=== PATIENT | male | born 1940 | race Caucasian/White ===

== ENCOUNTER → 2016-09-06 | Outpatient (CLI) | payer MEDICARE ==
[2016-09-06 13:18] LABS: INR 2.5 (<1.1); Prothrombin Time 23.7 sec (9.0-12.0)
== END | disposition home or self-care (01) ==
LOC: LABWHC1 11:51
PROVIDERS: ATTEND Family Medicine
DX: Z51.81 Encounter for therapeutic drug level monitoring (principal); Z79.01 Long term (current) use of anticoagulants
CPT/HCPCS: 36415; 85610

== ENCOUNTER 2017-01-26 13:48 | Emergency (ER) | payer MEDICARE ==
[2017-01-26 14:05] VITALS: BP 124/62; PULSE 80; RESP 18; TEMP 97.8
--- NOTE | 2017-01-26 14:23 | ED ---
General Adult HPI - General Chief complaint: Skin/Abscess/Foreign Body Stated complaint: Skin Tear Time Seen by Provider: 01/26/17 14:06 Source: patient, RN notes reviewed Mode of arrival: ambulatory Limitations: no limitations - History of Present Illness Initial comments: 76-year-old male presents to the emergency department with a chief complaint of skin tear to the left arm. Patient states that he hit on a corner today. Patient states that she has tetanus. Patient states he has had other injury to the area. Patient states he bandaged it himself. Patient states that he just wanted a bandage so he thought that he should be seen. Patient does take Xarelto. Patient denies any recent fever, chills, shortness of breath, chest pain, back pain, abdominal pain, nausea vomiting, numbness or tingling, dysuria or hematuria, constipation or diarrhea, headaches or visual changes, or any other current symptoms. - Related Data Home Medications Medication Instructions Recorded Confirmed Albuterol Inhaler [Ventolin Hfa 1 - 2 puff INHALATION Q6HR PRN 08/08/15 11/06/15 Inhaler] Beclomethasone Dipropionate [Qvar 2 puff INHALATION BID 08/08/15 11/06/15 80 mcg/puff] ALPRAZolam [Xanax] 0.25 mg PO Q8HR PRN 11/04/15 11/06/15 Montelukast Sodium [Singulair] 10 mg PO HS 11/04/15 11/06/15 Multivitamins, Thera [Multivitamin 1 tab PO DAILY 11/04/15 11/06/15 (formulary)] Omalizumab [Xolair] 2 injection SQ [id number] 11/04/15 11/06/15 Previous Rx's Medication Instructions Recorded Diltiazem Oral [Cardizem*] 30 mg PO BID #90 tab 11/06/15 Rivaroxaban [Xarelto] 20 mg PO W/SUPPER #90 tab 11/06/15 Allergies Allergy/AdvReac Type Severity Reaction Status Date / Time latex Allergy Itching Verified 01/26/17 14:04 magnesium Allergy HYPOTENSION Verified 01/26/17 14:04 Penicillins Allergy Anaphylaxis Verified 01/26/17 14:04 Review of Systems ROS Statement: Those systems with pertinent positive or pertinent negative responses have been documented in the HPI. ROS Other: All systems not noted in ROS Statement are negative. Past Medical History Past Medical History: Asthma, Eye Disorder, Hearing Disorder / Deafness, Hyperlipidemia, Osteoarthritis (OA), Skin Disorder, Supraventricular Tachycardia (SVT), Syncope Additional Past Medical History / Comment(s): PSORIASIS. MILD VARICOSE VEINS LEGS. SL GLAUCOMA. EPISODE SYNCOPE 09/26/15. RECENT CRAMPS IN FEET AND CALVES. PATIENT STATES "PREDNISONE MAY BE CAUSE OF SVT." History of Any Multi-Drug Resistant Organisms: None Reported Past Surgical History: Ablation, Appendectomy, Cholecystectomy, Joint Replacement, Orthopedic Surgery, Tonsillectomy Additional Past Surgical History / Comment(s): TOTAL LT KNEE; RT KNEE SCOPE. Additional Past Anesthesia/Blood Transfusion Reaction / Comment(s): DELAYED DIGESTION AFTER CHOLECYSTECTOMY. Past Psychological History: Anxiety, Depression Smoking Status: Former smoker Past Alcohol Use History: Rare Past Drug Use History: None Reported - Past Family History Father Family Medical History: Cancer General Exam Limitations: no limitations General appearance: alert ENT exam: Present: normal exam, mucous membranes moist Neck exam: Present: normal inspection. Absent: tenderness, meningismus, lymphadenopathy Respiratory exam: Present: normal lung sounds bilaterally. Absent: respiratory distress, wheezes, rales, rhonchi, stridor Cardiovascular Exam: Present: regular rate, normal rhythm, normal heart sounds. Absent: systolic murmur, diastolic murmur, rubs, gallop, clicks Extremities exam: Present: full ROM, normal capillary refill. Absent: normal inspection (Patient does appear to have a skin tear to left upper arm), tenderness, pedal edema, joint swelling, calf tenderness Neurological exam: Present: alert, oriented X3 Psychiatric exam: Present: normal affect, normal mood Skin exam: Present: warm, dry, intact, normal color. Absent: rash Course Vital Signs 01/26/17 14:00 Temperature 97.8 F Pulse Rate 80 Respiratory 18 Rate Blood Pressure 124/62 O2 Sat by Pulse 97 Oximetry Medical Decision Making - Medical Decision Making 76-year-old male presents for skin tear for left upper quadrant. Patient area was cleaned and Tegaderm was placed over the top. We discussed care of this we discussed return. Discussed follow-up and all the patient's questions. He stated he understood and he is in agreement. Patient will be Discharge. Disposition Clinical Impression: Skin tear of upper arm without complication Disposition: HOME SELF-CARE Condition: Stable Instructions: Skin Tear (ED) Additional Instructions: Please use medication as discussed. Please follow up with family doctor if symptoms have not improved over the next two days. Please return to the emergency room if your symptoms increase or worsen or for any other concerns. Referrals: Madhavi Agee MD [Primary Care Provider] - 1-2 days Time of Disposition: 14:26
== END 2017-01-26 14:31 | disposition home or self-care (01) ==
LOC: EC 13:48
DX: S41.112A Laceration without foreign body of left upper arm, initial encounter (principal); J45.909 Unspecified asthma, uncomplicated; Z87.891 Personal history of nicotine dependence; Z79.51 Long term (current) use of inhaled steroids; Z79.899 Other long term (current) drug therapy; Z88.0 Allergy status to penicillin; Z88.8 Allergy status to other drugs, medicaments and biological substances; Z91.040 Latex allergy status; W20.8XXA Other cause of strike by thrown, projected or falling object, initial encounter
CPT/HCPCS: 99282

== ENCOUNTER → 2017-02-15 | Outpatient (CLI) | payer MEDICARE ==
[2017-02-15 12:35] LABS: Blood Urea Nitrogen 23 mg/dL (9-20); Non-African American GFR(MDRD) 59 (>60 ml/min/1.73 sqM)
--- NOTE | 2017-02-15 14:08 | MR ---
EXAMINATION TYPE: MR pituitary wo/w con DATE OF EXAM: 02/15/2017 COMPARISON: MRI pituitary gland June 16, 2016 HISTORY: benign neoplasm of pituitary gland TECHNIQUE: Multiplanar, multisequence images of the brain and brainstem is performed without and with IV contras t, utilizing 20 mL intravenous MultiHance . Pituitary gland protocol. FINDINGS: There is redemonstration of heterogeneous enhancing sellar mass with suprasellar extension seen best on postcontrast sagittal image 8 and coronal image 10 measuring up to 1.4 cm in craniocauda l dimension. This extends to the superior medial margin of both adjacent distal internal carotid eli belia on coronal images. Size of lesion is stable. There is perhaps slight impression along the inferi or margin of optic chiasm seen best on coronal image 9 with loss of intervening CSF this is perhaps s lightly more prominent than prior study. Clinical correlation advised. Pituitary stalk remains deviat ed right of midline seen best coronal image 12. No suspicious bony destruction is seen. No new hydrocephalus is present. Craniocervical junction is maintained. 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 Appearance is grossly stable with the exception of encroachment along inferior m argin of the optic chiasm seen best on T2 coronal weighted images as detailed above. Clinical correla tion advised.
== END | disposition home or self-care (01) ==
LOC: RADMRIMAIN 12:03
PROVIDERS: ATTEND Neurological Surgery
DX: D35.2 Benign neoplasm of pituitary gland (principal)
CPT/HCPCS: 82565; 84520; 70553; A9577

== ENCOUNTER → 2018-02-09 | Outpatient (CLI) | payer MEDICARE ==
--- NOTE | 2018-02-09 09:33 | US ---
EXAMINATION TYPE: US duplex aorta DATE OF EXAM: 02/09/2018 COMPARISON: NONE CLINICAL HISTORY: Z13.6 screening for cardiovascular disorders. Patient states this is for a wellness check, states no symptoms at this time. TECHNIQUE: Multiple sonographic images of the abdominal aorta are obtained. FINDINGS: EXAM MEASUREMENTS: Abdominal Aorta: Proximal: 2.1 x 2.2cm Mid: 1.7 x 2.0cm Distal: 1.6 x 1.7cm Right Iliac: 0.9 x 1.1cm Left Iliac: 0.9 x 1.1cm Visualized portions of abdominal aorta and proximal iliacs appear wnl, no AAA seen at this time. IMPRESSION: No sonographic evidence for AAA.
== END | disposition home or self-care (01) ==
LOC: RADUSWWP 08:04
PROVIDERS: ATTEND Family Medicine
DX: Z13.6 Encounter for screening for cardiovascular disorders (principal)
CPT/HCPCS: 93979

== ENCOUNTER → 2019-02-15 | Outpatient (CLI) | payer MEDICARE ==
--- NOTE | 2019-02-15 17:16 | CT ---
EXAMINATION TYPE: CT chest wo con DATE OF EXAM: 02/15/2019 COMPARISON: None HISTORY: Cough, difficulty breathing CT DLP: 726.8 mGycm, Automated exposure control for dose reduction was used. CONTRAST: None TECHNIQUE: Axial images were obtained at 5 mm thick sections. Reconstructed images are reviewed on [email or web address] computer in the coronal plane. FINDINGS: Portion of the thyroid visualized is normal. There is a tiny calcification measuring 0.3 cm in the posterior left lung apex along the pleural marino in. 0.5 cm nodule is at the left apex. Series 4 image 10. Calcification is at the azygoesophageal re cess measures 0.6 cm. An additional 0.3 cm calcification appears to be in the posterior right lung. C ouple of additional punctate calcifications are within the left lower lung field measuring 0.4 cm eac h. There is a suspicious mass right infrahilar region measuring 4.3 x 3.9 cm. Neoplasm should be conside red. 1.3 cm density may be within the lingula. There is fullness in the left infrahilar region as wel l some small nodularities may be within the posterior lateral right lung base. There is a nodule within the posterior right lung measuring 0.8 cm. Series 4 image 15. An eccentric c alcification is present. A 0.5 cm densities in the posterior medial left upper lobe. Series 4 image 1 5. There is a 0.4 cm nodule superior segment left lower lobe. Series 4 image 25. These nodules appe ar to be soft tissue density without central calcification and cannot be classified as probably benig n. Multiple calcifications are within lymph nodes within the mediastinum. Some of these lymph nodes aren 't enlarged. Diffuse infiltrates in the right middle lobe and along the major fissure on the left. The ascending aorta diameter at the level of the main pulmonary artery is 3.7 cm. The main pulmonary artery diameter at the bifurcation is 2.[address] sections are obtained through the upper abdomen. Abdomen is essentially unremarkable. IMPRESSIONS: 1. Within multiple areas which are likely benign findings is a subtle right infrahilar soft tissue de nsity with spiculated margin which is suspicious for neoplasm. Consider PET CT for additional evaluat ion. 2. There are multiple nodular densities many of which have central calcification as well as calcified enlarged lymphadenopathy within the mediastinum. These areas are more likely benign and related to p rior granulomatous disease. 3. However, there are additional soft tissue nodules within the lung herrera discussed above. 4. PET CT is recommended for additional evaluation.
== END | disposition home or self-care (01) ==
LOC: RADCTMAIN 07:43
PROVIDERS: ATTEND Family Medicine
DX: J98.4 Other disorders of lung (principal); R59.0 Localized enlarged lymph nodes
CPT/HCPCS: 71250

== ENCOUNTER → 2019-03-09 | Outpatient (CLI) | payer MEDICARE ==
--- NOTE | 2019-03-10 15:48 | PE ---
EXAMINATION TYPE: PET CT fusion skull to thigh DATE OF EXAM: 03/09/2019 COMPARISON: Chest CT February 15, 2019 HISTORY: Right lung mass, abnormal CT TECHNIQUE: Following the intravenous administration of 9.17 mCi of F-18 FDG, whole body images are p erformed from the skull base to the midthigh. Images are reviewed on the computer in the coronal, ax ial, and sagittal planes. Reconstructed rotating images are created on independent workstation and r eviewed on the computer. A noncontrast CT is performed in conjunction with the PET scan. SCAN: Initial Scan FINDINGS: SKULL BASE AND NECK: No areas of suspicious hypermetabolic uptake. CHEST, MEDIASTINUM, AND HILAR REGION: There is redemonstration of multiple partially calcified thorac ic lymph nodes including involvement in bilateral hilar regions without definitive areas of suspiciou s hypermetabolic uptake. Findings presumed product of old granulomatous disease. Areas of parenchymal scarring in bilateral lower lobes, left greater than right are present without suspicious hypermetab olic uptake. ABDOMEN AND PELVIS: No areas of suspicious hypermetabolic uptake. No adrenal masses are noted. OSSEOUS STRUCTURES: No areas of suspicious hypermetabolic uptake. OTHER CT: Ymhu-cj-uhmsfjpt calcified plaque bilateral carotid bulb level is present. Moderate to severe three-vessel coronary artery calcification is seen which is noted marked underlyin g coronary artery disease. Cystectomy clips are present. Ilpr-jf-kdwlpeld fatty-replaced atrophy of the pancreas. Diverticula in the left and sigmoid colon are seen. Facet arthropathy in the lower lumbar spine. Multilevel spurring in the spine. IMPRESSION: No areas of suspicious hypermetabolic uptake including at area of recent concern right in frahilar level with more spiculated noncalcified appearance on recent CT. Evidence of significant old granulomatous disease redemonstrated.
== END | disposition home or self-care (01) ==
LOC: RADPETMAIN 16:11
PROVIDERS: ATTEND Internal Medicine Pulmonary Disease
DX: R91.8 Other nonspecific abnormal finding of lung field (principal)
CPT/HCPCS: 78815; A9552

== ENCOUNTER → 2019-05-15 | Outpatient (CLI) | payer MEDICARE | END | disposition home or self-care (01) | LOC: LABWHC1 15:16 | PROVIDERS: ATTEND Family Medicine | DX: D72.1 Eosinophilia (principal) | CPT/HCPCS: 87045; 87046; 87328; 87329 ==

== ENCOUNTER → 2019-10-11 | Outpatient (CLI) | payer MEDICARE ==
[2019-10-11 16:15] LABS: HCT 42.3 % (39.0-53.0); HGB 13.9 gm/dL (13.0-17.5); MCHC 32.8 g/dL (31.0-37.0); MCV 91.7 fL (80.0-100.0); Mean Platelet Volume 7.5; Platelet Count 178 k/uL (150-450); RBC 4.61 m/uL (4.30-5.90); RDW 13.6 % (11.5-15.5)
--- NOTE | 2019-10-11 16:32 | XR ---
EXAMINATION TYPE: XR foot complete RT DATE OF EXAM: 10/11/2019 CLINICAL HISTORY: Swelling and redness centered first toe 2 days. TECHNIQUE: Frontal, lateral, and oblique images of the right foot are obtained. COMPARISON: None FINDINGS: There is no acute fracture/dislocation evident in the right foot. Hallux valgus positionin g first metatarsal-phalangeal joint. Fairly moderate narrowing most prominent medially at this level with subchondral cystic change and mild spurring. There are moderate to large size superior and infer ior calcaneal spurs. No suspicious cortical destruction or periosteal reaction is seen to suggest acu te osteomyelitis. Mild plantar surface subcutaneous edema noted. IMPRESSION: As above .
[2019-10-11 16:33] LABS: African American GFR (CKD) 63 (>60 ml/min/1.73 sqM); Anion Gap 7 mmol/L; Blood Urea Nitrogen 27 mg/dL (9-20); Calcium 9.5 mg/dL (8.4-10.2); Carbon Dioxide 30 mmol/L (22-30); Chloride 100 mmol/L (98-107); Globulin 2.6 g/dL; Glucose 85 mg/dL (74-99); Magnesium 2.1 mg/dL (1.6-2.3); Non-African American GFR(CKD) 55 (>60 ml/min/1.73 sqM); Potassium 4.2 mmol/L (3.5-5.1); Sodium 137 mmol/L (137-145); Total Protein 6.6 g/dL (6.3-8.2)
[2019-10-11 16:34] LABS: ALT 15 U/L (4-49); AST 25 U/L (17-59); Albumin/Globulin Ratio 1.5; Alkaline Phosphatase 78 U/L (38-126); Total Bilirubin 0.6 mg/dL (0.2-1.3)
== END | disposition home or self-care (01) ==
LOC: LABWHC1 15:41
PROVIDERS: ATTEND Family Medicine
DX: M20.11 Hallux valgus (acquired), right foot (principal); M79.89 Other specified soft tissue disorders; L03.115 Cellulitis of right lower limb
CPT/HCPCS: 36415; 80053; 83735; 84550; 85027; 87040

== ENCOUNTER → 2020-09-18 | Outpatient (CLI) | payer MEDICARE ==
--- NOTE | 2020-09-18 21:01 | US ---
EXAMINATION TYPE: US extremity nonvasculr ltd LT DATE OF EXAM: 09/18/2020 COMPARISON: NONE CLINICAL HISTORY: R22.42 SWELLING LT LOWER LIMB. Patient states lump left medial lower thigh since last March after vein harvesting for open heart farr rgery. Scanning was performed directly over palpable, left lower inner thigh. There is a 3.9 x 2.3 x 4.0 cm complex fluid collection at palpable. Color flow was not performed. IMPRESSION: 1. Findings likely related to old hematoma or seroma at the palpable area.
== END | disposition home or self-care (01) ==
LOC: RADUSWWP 15:34
PROVIDERS: ATTEND Family Medicine
DX: R22.42 Localized swelling, mass and lump, left lower limb (principal)

== ENCOUNTER → 2021-01-16 | Outpatient (CLI) | payer MEDICARE ==
[~2021-01-16] MED LIST: REGADENOSON 0.4 MG/5 ML SYRINGE IV PRN
--- NOTE | 2021-01-16 16:54 | NM ---
EXAMINATION TYPE: NM stress lexiscan cardiolite DATE OF EXAM: 01/16/2021 COMPARISON: NONE HISTORY: 80-year-old male fatigue, chest discomfort, shoulder pain. TECHNIQUE: After the intravenous administration of 9.7 mCi Tc 99m Sestamibi - Cardiolite resting SPE CT images acquired 45 minutes post injection. The patient received 0.4mg Lexiscan, 25.8 mCi Tc 99m Sestamibi - Stress images obtained [address] injection FINDINGS: Review of stress and rest SPECT images demonstrates fixed perfusion defect along the mid to apical in ferior wall which enlarges on stress. On stress, decreased activity extends up to the inferolateral b will wall. Gated analysis shows normal wall motion with an estimated left ventricular ejection fracti on of 47 %. TID is 1.04, within normal limits. IMPRESSION: Unable to exclude old infarct along the mid to apical inferior wall with liza-infarct ischemia and so me contiguous inducible ischemia extending up into the basal inferolateral wall. Further evaluation r ecommended.
--- NOTE | 2021-01-16 18:04 | ECHOF ---
Referral Reason:R06.00 Dyspnea MEASUREMENTS -------- HEIGHT: 170.2 cm WEIGHT: 104.3 kg BP: RVIDd: 4.6 cm (< 3.3) IVSd: 2.1 cm (0.6 - 1.1) LVIDd: 4.6 cm (3.9 - 5.3) LVPWd: 1.3 cm (0.6 - 1.1) IVSs: 2.3 cm LVIDs: 2.9 cm LVPWs: 1.8 cm LAESV Index (A-L): 33.42 ml/m Ao Diam: 3.2 cm (2.0 - 3.7) AV Cusp: 1.9 cm (1.5 - 2.6) LA Diam: 5.0 cm (2.7 - 3.8) MV E Justino: 0.79 m/s MV DecT: 167 ms MV A Justino: 0.64 m/s MV E/A Ratio: 1.23 RAP: 5.00 mmHg RVSP: 27.54 mmHg FINDINGS -------- Sinus rhythm. This was a technically difficult study with suboptimal views. The left ventricular size is normal. There is moderate concentric left ventricular hypertrophy. O verall left ventricular systolic function is low-normal with, an EF between 50 - 55 %. Septal wall motion is delayed and consistent with prior cardiac surgery. The right ventricle is moderately enlarged. LA is midly dilated 29-33ml/m2. The right atrial size is normal. 5.0mg of Lumason was utilized for enhancement of images Interatrial and interventricular septum intact. There is no evidence of aortic regurgitation. There is no evidence of aortic stenosis. Mild mitral regurgitation is present. Mild tricuspid regurgitation present. There is no evidence of pulmonary hypertension. The right v entricular systolic pressure, as measured by Doppler, is 27.54mmHg. There is no pulmonic regurgitation present. The aortic root size is normal. IVC Not well visulized. There is no pericardial effusion. CONCLUSIONS -------- 1. The left ventricular size is normal. 2. There is moderate concentric left ventricular hypertrophy. 3. Overall left ventricular systolic function is low-normal with, an EF between 50 - 55 %. 4. Septal wall motion is delayed and consistent with prior cardiac surgery. 5. The right ventricle is moderately enlarged. 6. LA is midly dilated 29-33ml/m2. 7. Mild mitral regurgitation is present. 8. Mild tricuspid regurgitation present. DATA MODELING ARCHITECT: Cherri Santana RDCS
--- NOTE | 2021-01-17 15:02 | EST ---
EXERCISE STRESS DATE OF SERVICE: 01/16/2021. AGE: 80 SEX: M HT: @@ WT: @@ PROTOCOL: @@ STAGE: @@ DURATION OF EXERCISE: @@ HEART RATE REST: @@ BLOOD PRESSURE REST: @@ MAXIMUM HEART RATE ACHIEVED: @@ MAXIMUM BLOOD PRESSURE: @@ 85% MPHR: @@ 100% MPHR: @@ METS: @@ STRESS DATA: Heart rate 59, pressure is 111/58 mmHg. Baseline EKG showed sinus mechanism. The patient was given 0.4 mg of Lexiscan over 15 seconds per protocol. Max heart rate was 70 beats per minute and maximum pressure was 108/42 mmHg. Clinically, the patient did not have any symptoms and the EKG did not show any significant ST or T-wave abnormalities concerning for ischemia. CONCLUSION: 1. Nondiagnostic electrocardiogram stress testing in response to Lexiscan. 2. Please follow up on the Cardiolite portion on a separate report. MMODL / IJN: [id number] /
== END | disposition home or self-care (01) ==
LOC: RADNMMAIN 07:52
PROVIDERS: ATTEND Internal Medicine Cardiovascular Disease
DX: I25.9 Chronic ischemic heart disease, unspecified (principal); I08.1 Rheumatic disorders of both mitral and tricuspid valves
CPT/HCPCS: 93017; 78452; C8929; A9500; J2785; Q9950; 93306

== ENCOUNTER → 2021-01-23 | Outpatient (CLI) | payer MEDICARE ==
[2021-01-23 18:30] LABS: Basophils # (A) 0.01 X 10*3/uL (0.00-0.10); Basophils % (A) 0.2 %; Eosinophils # (A) 0 X 10*3/uL (0.04-0.35); Eosinophils % (A) 0 %; HCT 43.6 % (39.6-50.0); HGB 14.2 g/dL (13.0-17.0); Lymphocytes # (A) 0.84 X 10*3/uL (0.90-5.00); Lymphocytes % (A) 15.7 %; MCH 30.5 pg (27.0-32.0); MCHC 32.6 g/dL (32.0-37.0); MCV 93.6 fL (80.0-97.0); Mean Platelet Volume 10.2 fL (9.5-12.2); Monocytes # (A) 0.65 X 10*3/uL (0.20-1.00); Monocytes % (A) 12.1 %; Neutrophils # (A) 3.83 X 10*3/uL (1.80-7.70); Neutrophils % (A) 71.6 %; Platelet Count 186 X 10*3/uL (140-440); RBC 4.66 X 10*6/uL (4.40-5.60); RDW 12.9 % (11.5-14.5); WBC 5.35 X 10*3/uL (4.50-10.00)
[2021-01-23 20:31] LABS: Hemoglobin A1C 5.6 % (4.0-6.0)
[2021-01-23 22:27] LABS: African American GFR (CKD) 66.7 (60.0-200.0); Albumin 4.3 g/dL (3.80-4.90); Albumin/Globulin Ratio 2.05 (1.60-3.17); BUN/Creat Ratio 19.17 Ratio (12.00-20.00); Calcium 9.3 mg/dL (8.7-10.3); Chol/HDL Ratio 4.93; Globulin 2.1 g/dL (1.6-3.3); LDL Cholesterol,Calculated 146.8 mg/dL (0.0-131.0); Non-African American GFR(CKD) 57.6 (60.0-200.0); Potassium 4.7 mmol/L (3.5-5.5); Total Bilirubin 0.7 mg/dL (0.3-1.2); Total Protein 6.4 g/dL (6.2-8.2); VLDL Calculation 26.2 mg/dL (5.00-40.00)
== END | disposition home or self-care (01) ==
LOC: LABWHC1 12:03
PROVIDERS: ATTEND Internal Medicine Cardiovascular Disease
DX: Z13.1 Encounter for screening for diabetes mellitus (principal); E78.5 Hyperlipidemia, unspecified; I25.10 Atherosclerotic heart disease of native coronary artery without angina pectoris
CPT/HCPCS: 36415; 80053; 80061; 83036; 85025

== ENCOUNTER → 2021-03-26 | Outpatient (CLI) | payer MEDICARE ==
[2021-03-26 19:00] LABS: HCT 41.4 % (39.6-50.0); MCH 31.4 pg (27.0-32.0); MCHC 33.8 g/dL (32.0-37.0); MCV 92.8 fL (80.0-97.0); Mean Platelet Volume 10.5 fL (9.5-12.2); Platelet Count 180 X 10*3/uL (140-440); RBC 4.46 X 10*6/uL (4.40-5.60); RDW 12.7 % (11.5-14.5); WBC 6.22 X 10*3/uL (4.50-10.00)
[2021-03-26 22:13] LABS: African American GFR (CKD) 60.6 (60.0-200.0); Albumin 4.4 g/dL (3.80-4.90); Albumin/Globulin Ratio 2.2 (1.60-3.17); Anion Gap 9.3 mmol/L (4.00-12.00); BUN/Creat Ratio 16.15 Ratio (12.00-20.00); Calcium 9.7 mg/dL (8.7-10.3); Carbon Dioxide 25.7 mmol/L (21.6-31.8); Non-African American GFR(CKD) 52.3 (60.0-200.0); Potassium 4.6 mmol/L (3.5-5.5); Total Bilirubin 0.5 mg/dL (0.3-1.2); Total Protein 6.4 g/dL (6.2-8.2)
== END | disposition home or self-care (01) ==
LOC: LABWHC1 01-22 12:21
PROVIDERS: ATTEND Internal Medicine Cardiovascular Disease
DX: I20.0 Unstable angina (principal)
CPT/HCPCS: 36415; 80053; 85027

== ENCOUNTER → 2021-04-20 | Outpatient (CLI) | payer MEDICARE ==
[2021-04-20 22:56] LABS: HCT 40.1 % (39.6-50.0); HGB 13.2 g/dL (13.0-17.0); MCH 30.8 pg (27.0-32.0); MCHC 32.9 g/dL (32.0-37.0); MCV 93.7 fL (80.0-97.0); Mean Platelet Volume 10.3 fL (9.5-12.2); Platelet Count 163 X 10*3/uL (140-440); RBC 4.28 X 10*6/uL (4.40-5.60); WBC 5.13 X 10*3/uL (4.50-10.00)
[2021-04-20 23:27] LABS: INR 0.94 (0.90-1.11); Prothrombin Time 10.3 sec (9.9-11.9)
[2021-04-21 19:34] LABS: African American GFR (CKD) 66.7 (60.0-200.0); Albumin 4.5 g/dL (3.80-4.90); Albumin/Globulin Ratio 2.25 (1.60-3.17); Anion Gap 13.2 mmol/L (4.00-12.00); BUN/Creat Ratio 19.17 Ratio (12.00-20.00); Calcium 9.1 mg/dL (8.7-10.3); Carbon Dioxide 22.8 mmol/L (21.6-31.8); Non-African American GFR(CKD) 57.6 (60.0-200.0); Potassium 4.9 mmol/L (3.5-5.5); Total Bilirubin 0.5 mg/dL (0.3-1.2); Total Protein 6.5 g/dL (6.2-8.2)
== END | disposition home or self-care (01) ==
LOC: LABWHC1 16:09
PROVIDERS: ATTEND Internal Medicine Cardiovascular Disease
DX: I25.10 Atherosclerotic heart disease of native coronary artery without angina pectoris (principal); Z79.01 Long term (current) use of anticoagulants
CPT/HCPCS: 36415; 80053; 85027; 85610

== ENCOUNTER → 2021-06-23 | Outpatient (CLI) | payer MEDICARE ==
--- NOTE | 2021-06-23 15:17 | US ---
EXAMINATION TYPE: US kidneys/renal and bladder DATE OF EXAM: 06/23/2021 COMPARISON: PET/CT March 09, 2019 CLINICAL HISTORY: N28.9 CKD. CKD EXAM MEASUREMENTS: Right Kidney: 9.7 x 4.3 x 4.3 cm Left Kidney: 10.3 x 4.4 x 4.1 cm technical limitations due to large amount of overlying bowel content Right Kidney: no evidence of hydronephrosis Left Kidney: no evidence of hydronephrosis Bladder: appears wnl Bilateral Jets seen: no There is no evidence for hydronephrosis at this point in time. No nephrolithiasis is seen. No isabel s are identified. The urinary bladder is 93 the distended. Bilateral ureteral jets are not seen. IMPRESSION: No hydronephrosis seen bilaterally.
== END | disposition home or self-care (01) ==
LOC: RADUSWWP 14:01
PROVIDERS: ATTEND Family Medicine
DX: N18.9 Chronic kidney disease, unspecified (principal)
CPT/HCPCS: 76770

== ENCOUNTER → 2021-10-20 | Outpatient (CLI) | payer MEDICARE ==
[2021-10-20 22:59] LABS: Appearance,Urine Clear (Clear); Bilirubin,Urine Negative (Negative); Blood,Urine Negative (Negative); Color,Urine Yellow (Yellow); Ketones,Urine Negative (Negative); Leukocyte Esterase,Urine Negative (Negative); Nitrite,Urine Negative (Negative); PH, Urine 5.5 (5.0-8.0); Protein,Urine Negative (Negative); Specific Gravity,Urine 1.015 (1.001-1.030); Urobilinogen,Urine 0.2 (0.2,1.0)
[2021-10-20 23:26] LABS: African American GFR (CKD) 66.3 (60.0-200.0); Albumin 4.3 g/dL (3.8-4.9); Albumin/Globulin Ratio 2.05 (1.60-3.17); Anion Gap 11.6 mmol/L (10.00-18.00); BUN/Creat Ratio 19.83 Ratio (12.00-20.00); Blood Urea Nitrogen 23.8 mg/dL (9.0-27.0); Calcium 9.9 mg/dL (8.7-10.3); Carbon Dioxide 24.4 mmol/L (20.0-27.5); Globulin 2.1 g/dL (1.6-3.3); Magnesium 2.1 mg/dL (1.5-2.4); Non-African American GFR(CKD) 57.2 (60.0-200.0); Phosphorus 3.6 mg/dL (2.4-5.1); Potassium 4.8 mmol/L (3.5-5.5); Total Bilirubin 0.2 mg/dL (0.30-1.20); Total Protein 6.4 g/dL (6.2-8.2); Uric Acid 6.6 mg/dL (3.7-8.7)
[2021-10-20 23:34] LABS: HCT 39.9 % (39.6-50.0); HGB 13.3 g/dL (13.0-17.0); MCH 30.9 pg (27.0-32.0); MCHC 33.3 g/dL (32.0-37.0); MCV 92.6 fL (80.0-97.0); Mean Platelet Volume 10.3 fL (9.5-12.2); NRBC Per 100 WBC 0 /100 WBCS (0.0-0.0); Platelet Count 160 X 10*3/uL (140-440); RBC 4.31 X 10*6/uL (4.40-5.60); WBC 6.93 X 10*3/uL (4.50-10.00)
[2021-10-20 23:59] LABS: Ferritin 63.1 ng/mL (22.0-322.0)
[2021-10-21 00:24] LABS: % Iron Saturation 25.85 (15.00-50.00)
== END | disposition home or self-care (01) ==
LOC: LABWHC1 16:11
PROVIDERS: ATTEND Internal Medicine
DX: N18.31 Chronic kidney disease, stage 3a (principal); D64.9 Anemia, unspecified; N39.0 Urinary tract infection, site not specified; N25.81 Secondary hyperparathyroidism of renal origin; E55.9 Vitamin D deficiency, unspecified; M10.9 Gout, unspecified
CPT/HCPCS: 36415; 80053; 81003; 82306; 82728; 83540; 83550; 83735; 83970; 84100; 84550; 85027

== ENCOUNTER → 2022-01-18 | Outpatient (CLI) | payer MEDICARE ==
[2022-01-18 18:06] LABS: ALT 20 U/L (10-49); AST 26 U/L (14-35); African American GFR (CKD) 66.3 (60.0-200.0); Albumin 4.4 g/dL (3.8-4.9); Alkaline Phosphatase 81 U/L (41-126); BUN/Creat Ratio 14.58 Ratio (12.00-20.00); Blood Urea Nitrogen 17.5 mg/dL (9.0-27.0); Calcium 9.6 mg/dL (8.7-10.3); Carbon Dioxide 25.8 mmol/L (20.0-27.5); Chloride 102 mmol/L (96-109); Chol/HDL Ratio 2.93 Ratio; Glucose 102 mg/dL (70-110); LDL Cholesterol,Calculated 69.2 mg/dL (0.0-131.0); Non-African American GFR(CKD) 57.2 (60.0-200.0); Potassium 4.7 mmol/L (3.5-5.5); Sodium 137 mmol/L (135-145); Total Protein 6.4 g/dL (6.2-8.2); VLDL Calculation 17.84 mg/dL (5.00-40.00)
== END | disposition home or self-care (01) ==
LOC: LABWHC1 11:59
PROVIDERS: ATTEND Internal Medicine Interventional Cardiology
DX: E78.2 Mixed hyperlipidemia (principal)
CPT/HCPCS: 36415; 80053; 80061

== ENCOUNTER 2022-02-05 10:20 | Day surgery (SDC) | payer MEDICARE ==
[~2022-02-05 10:20] MED LIST changes: +LACTATED RINGERS 1,000 ML IV SCH; -REGADENOSON 0.4 MG/5 ML SYRINGE IV PRN
[2022-02-05 11:20] VITALS: RESP 16; TEMP 98.5
[2022-02-05] MEDS ORDERED: LIDOCAINE 1% (10MG/ML) FOR IV START INTRADERMA ONE (11:26)
[2022-02-05] MEDS ORDERED: LIDOCAINE 2% INJ 20 MG/ML (2 ML VIAL) ONE (12:21)
[2022-02-05] MEDS ORDERED: PROPOFOL 10 MG/ML 20 ML VIAL IV ONE (12:21)
--- NOTE | 2022-02-05 12:38 | P.PCN ---
Date of Procedure: 02/05/22 Procedure(s) Performed: BRIEF HISTORY: Patient is a 81-year-old pleasant male scheduled for an elective colonoscopy as a part of evaluation prior history of colon polyps. Last colonoscopy was 6 years ago. PROCEDURE PERFORMED: Colonoscopy. PREOPERATIVE DIAGNOSIS: History of colon polyps. IV sedation per Anesthesia. PROCEDURE: After informed consent was obtained, the patient, was brought into the endoscopy unit. IV sedation was administered by Anesthesia under continuous monitoring. Digital rectal examination was normal. Initially the Olympus CF-160 flexible video colonoscope was then inserted in the rectum, gradually advanced into the cecum without any difficulty. Careful examination was performed as the scope was gradually being withdrawn. Ileocecal valve and the appendiceal orifice were visualized and appeared normal. Prep was excellent. Mucosa of the cecum, ascending colon, transverse colon, descending colon, sigmoid colon, and rectum appeared normal. Scattered sigmoid diverticulosis. Retroflexion was performed in the rectum and monitor hemorrhoids were seen. The patient tolerated the procedure well. IMPRESSION: Normal-appearing colon from rectum to cecum with no evidence of colorectal neoplasia . Moderate sigmoid diverticulosis Small internal hemorrhoids RECOMMENDATIONS: Findings of this examination were discussed with the patient as well as his family. He was advised to be a high-fiber diet and fiber supplements as needed..
[2022-02-05 12:59] VITALS: BP 131/77; PULSE 64
== END 2022-02-05 13:26 | disposition home or self-care (01) ==
LOC: ORWHC2ENDO 10:20
PROVIDERS: ATTEND Internal Medicine Gastroenterology
DX: K57.30 Diverticulosis of large intestine without perforation or abscess without bleeding (principal); K64.8 Other hemorrhoids; Z86.010 Personal history of colon polyps; I25.10 Atherosclerotic heart disease of native coronary artery without angina pectoris; Z95.5 Presence of coronary angioplasty implant and graft; I10 Essential (primary) hypertension; E78.5 Hyperlipidemia, unspecified; G47.33 Obstructive sleep apnea (adult) (pediatric); Z88.0 Allergy status to penicillin; Z88.8 Allergy status to other drugs, medicaments and biological substances; Z91.040 Latex allergy status; Z79.01 Long term (current) use of anticoagulants; Z79.899 Other long term (current) drug therapy; Z79.82 Long term (current) use of aspirin; Z87.891 Personal history of nicotine dependence; Z80.9 Family history of malignant neoplasm, unspecified
CPT/HCPCS: 45378; J2704; J2001

== ENCOUNTER → 2022-02-15 | Outpatient (CLI) | payer MEDICARE ==
[2022-02-15 23:31] LABS: HCT 39.9 % (39.6-50.0); HGB 13.1 g/dL (13.0-17.0); MCH 30.9 pg (27.0-32.0); MCHC 32.8 g/dL (32.0-37.0); MCV 94.1 fL (80.0-97.0); Mean Platelet Volume 10.2 fL (9.5-12.2); NRBC Per 100 WBC 0 /100 WBCS (0.0-0.0); Platelet Count 181 X 10*3/uL (140-440); RBC 4.24 X 10*6/uL (4.40-5.60); WBC 6.38 X 10*3/uL (4.50-10.00)
[2022-02-15 23:36] LABS: Ferritin 89.4 ng/mL (22.0-322.0)
[2022-02-15 23:44] LABS: % Iron Saturation 29.4 (15.00-50.00); Albumin 4.3 g/dL (3.8-4.9); Albumin/Globulin Ratio 2.16 (1.60-3.17); Anion Gap 13.6 mmol/L (10.00-18.00); BUN/Creat Ratio 17.36 Ratio (12.00-20.00); Blood Urea Nitrogen 24.3 mg/dL (9.0-27.0); Calcium 9.7 mg/dL (8.7-10.3); Carbon Dioxide 23.6 mmol/L (20.0-27.5); Magnesium 2.4 mg/dL (1.5-2.4); Non-African American GFR(CKD) 47.5 (60.0-200.0); Phosphorus 3.7 mg/dL (2.4-5.1); Potassium 4.8 mmol/L (3.5-5.5); Total Bilirubin 0.4 mg/dL (0.30-1.20); Total Protein 6.3 g/dL (6.2-8.2); Uric Acid 7.5 mg/dL (3.7-8.7)
== END | disposition home or self-care (01) ==
LOC: LABWHC1 14:53
PROVIDERS: ATTEND Internal Medicine
DX: N25.81 Secondary hyperparathyroidism of renal origin (principal); N18.31 Chronic kidney disease, stage 3a; D64.9 Anemia, unspecified; E55.9 Vitamin D deficiency, unspecified; M10.9 Gout, unspecified
CPT/HCPCS: 36415; 80053; 82306; 82728; 83540; 83550; 83735; 83970; 84100; 84550; 85027

== ENCOUNTER → 2022-07-06 | Outpatient (CLI) | payer MEDICARE ==
[2022-07-06 19:48] LABS: ALT 13 U/L (10-49); AST 17 U/L (14-35); Chol/HDL Ratio 3.69 Ratio; LDL Cholesterol,Calculated 102.1 mg/dL (0.0-131.0); VLDL Calculation 17.52 mg/dL (5.00-40.00)
== END | disposition home or self-care (01) ==
LOC: LABWHC1 11:47
PROVIDERS: ATTEND Internal Medicine Interventional Cardiology
DX: E78.2 Mixed hyperlipidemia (principal)
CPT/HCPCS: 36415; 80061; 84450; 84460

== ENCOUNTER → 2023-01-04 | Outpatient (CLI) | payer MEDICARE ==
[2023-01-05 03:09] LABS: ALT 14 U/L (10-49); AST 24 U/L (14-35); African American GFR (CKD) 58.6 (60.0-200.0); Albumin 4.3 g/dL (3.8-4.9); Albumin/Globulin Ratio 1.99 (1.60-3.17); Alkaline Phosphatase 75 U/L (41-126); BUN/Creat Ratio 17.58 Ratio (12.00-20.00); Blood Urea Nitrogen 23.2 mg/dL (9.0-27.0); Carbon Dioxide 26.2 mmol/L (20.0-27.5); Chloride 103 mmol/L (96-109); Chol/HDL Ratio 4.13 Ratio; Globulin 2.2 g/dL (1.6-3.3); Glucose 97 mg/dL (70-110); LDL Cholesterol,Calculated 121.2 mg/dL (0.0-131.0); Non-African American GFR(CKD) 50.6 (60.0-200.0); Sodium 140 mmol/L (135-145); Total Protein 6.4 g/dL (6.2-8.2); VLDL Calculation 19.04 mg/dL (5.00-40.00)
== END | disposition home or self-care (01) ==
LOC: LABWHC1 16:04
PROVIDERS: ATTEND Internal Medicine Interventional Cardiology
DX: E78.2 Mixed hyperlipidemia (principal)
CPT/HCPCS: 36415; 80053; 80061

== ENCOUNTER → 2023-03-16 | Outpatient (CLI) | payer MEDICARE ==
[2023-03-16 20:11] LABS: ALT 14 U/L (10-49); AST 19 U/L (14-35); Albumin 4.4 d/dL (3.8-4.9); Alkaline Phosphatase 74 U/L (41-126); BUN/Creat Ratio 18.92 Ratio (12.00-20.00); Blood Urea Nitrogen 22.7 mg/dL (9.0-27.0); Calcium 9.5 mg/dL (8.7-10.3); Carbon Dioxide 26.2 mmol/L (21.6-31.8); Chloride 103 mmol/L (96-109); Chol/HDL Ratio 4.33 Ratio; Globulin 2.1 d/dL (1.6-3.3); Glucose 97 mg/dL (70-110); LDL Cholesterol,Calculated 118.5 mg/dL (0.0-131.0); Potassium 5.1 mmol/L (3.5-5.5); Sodium 138 mmol/L (135-145); Total Bilirubin 0.5 mg/dL (0.3-1.2); Total Protein 6.5 d/dL (6.2-8.2)
== END | disposition home or self-care (01) ==
LOC: LABWHC1 15:14
PROVIDERS: ATTEND Internal Medicine Interventional Cardiology
DX: I10 Essential (primary) hypertension (principal); E78.2 Mixed hyperlipidemia
CPT/HCPCS: 36415; 80053; 80061

== ENCOUNTER → 2023-06-27 | Outpatient (CLI) | payer MEDICARE ==
[2023-06-27 15:51] LABS: ALT 11 U/L (10-49); AST 16 U/L (14-35); Chol/HDL Ratio 3.84 Ratio; LDL Cholesterol,Calculated 101.1 mg/dL (0.0-131.0)
== END | disposition home or self-care (01) ==
LOC: LABWHC1 10:28
PROVIDERS: ATTEND Nurse Practitioner Adult Health
DX: E78.2 Mixed hyperlipidemia (principal)
CPT/HCPCS: 36415; 80061; 84450; 84460

== ENCOUNTER → 2023-10-17 | Outpatient (CLI) | payer MEDICARE ==
[2023-10-17 19:18] LABS: ALT 11 U/L (10-49); AST 21 U/L (14-35); Albumin 4.4 g/dL (3.8-4.9); Albumin/Globulin Ratio 1.69 Ratio (1.60-3.17); Alkaline Phosphatase 78 U/L (41-126); BUN/Creat Ratio 19.46 Ratio (12.00-20.00); Blood Urea Nitrogen 25.3 mg/dL (9.0-27.0); Calcium 10.2 mg/dL (8.7-10.3); Carbon Dioxide 27.9 mmol/L (21.6-31.8); Chloride 100 mmol/L (96-109); Chol/HDL Ratio 3.49 Ratio; Globulin 2.6 g/dL (1.6-3.3); Glucose 93 mg/dL (70-110); LDL Cholesterol,Calculated 92.3 mg/dL (0.0-131.0); Potassium 4.6 mmol/L (3.5-5.5); Sodium 139 mmol/L (135-145); Total Bilirubin 0.6 mg/dL (0.3-1.2)
== END | disposition home or self-care (01) ==
LOC: LABWHC1 14:35
PROVIDERS: ATTEND Internal Medicine Interventional Cardiology
DX: I10 Essential (primary) hypertension (principal); E78.2 Mixed hyperlipidemia
CPT/HCPCS: 36415; 80053; 80061

== ENCOUNTER → 2023-11-23 | Outpatient (CLI) | payer MEDICARE ==
--- NOTE | 2023-11-23 21:16 | US ---
EXAMINATION TYPE: US thyroid st tissue head/neck DATE OF EXAM: 11/23/2023 COMPARISON: NONE CLINICAL INDICATION: Male, 83 years old with history of K12.2 CELLULITIS AND ABSCESS OF MOUTH; Patien t states history of abscess on left mandible/jaw. Patient was on antibiotics, states no longer experi encing symptoms or palpable. Left mandible scanned at prior area of abscess, no abnormality noted. IMPRESSION: 1. No discrete abscess by ultrasound.
== END | disposition home or self-care (01) ==
LOC: RADUSWWP 15:52
PROVIDERS: ATTEND Family Medicine
DX: K12.2 Cellulitis and abscess of mouth (principal)
CPT/HCPCS: 76536

== ENCOUNTER → 2024-02-16 | Outpatient (CLI) | payer MEDICARE ==
--- NOTE | 2024-02-16 10:05 | MM ---
Reason for Exam: Clinical finding. Tissue Density: There are scattered areas of fibroglandular density. Findings: Analyzed By CAD. The pattern is symmetrical. There is some mild increased parenchymal tissue posterior to the nipples bilaterally. This may be slightly greater on the right. Discrete mammographic abnormality is not identified. There are some scattered benign calcifications on the left with a few punctate benign-appearing calcifications on the right. No suspicious groups of microcalcifications, spiculated or lobular masses, architectural distortion or other secondary signs of malignancy are mammographically apparent. Overall Assessment: Incomplete: need additional imaging evaluation, BI-RAD 0 Management: Diagnostic Breast Ultrasound of both breasts. A negative mammogram report should not preclude additional follow up of suspicious palpable abnormalities. Patient should continue monthly self breast exam. A clinical breast exam by your physician is recommended on an annual basis and results should be correlated with mammographic findings. Note on Yeny scores and lifetime risk: 1. A Yeny score greater than 3% is considered moderate risk. If this is the case, consider specialist referral to assess eligibility for a risk reducing agent. 2. If overall lifetime risk for the development of breast cancer is 20% or higher, the patient may qualify for future screening with alternating mammogram and breast MRI. Electronically signed and approved by: Gregg Sinclair D.O. Radiologis
--- NOTE | 2024-02-16 10:45 | USB ---
Reason for Exam: Clinical finding. Technique: Method: Targeted. Findings: The retroareolar of both breasts was scanned. No solid or cystic masses are identified. Mild gynecomastia may be present on the right. Overall Assessment: Benign, BI-RAD 2 Electronically signed and approved by: Gregg Sinclair D.O. Radiologis
== END | disposition home or self-care (01) ==
LOC: RADMAMWWP 09:36
PROVIDERS: ATTEND Internal Medicine
DX: R92.323 Mammographic fibroglandular density, bilateral breasts (principal); N63.0 Unspecified lump in unspecified breast
CPT/HCPCS: 77066; 76642; G0279; 77062

== ENCOUNTER → 2024-04-19 | Outpatient (CLI) | payer MEDICARE ==
[2024-04-20 03:05] LABS: ALT 11 U/L (10-49); AST 19 U/L (14-35); Albumin 4.3 g/dL (3.8-4.9); Albumin/Globulin Ratio 1.79 Ratio (1.60-3.17); Alkaline Phosphatase 77 U/L (41-126); Blood Urea Nitrogen 31.8 mg/dL (9.0-27.0); Calcium 9.4 mg/dL (8.7-10.3); Carbon Dioxide 26.1 mmol/L (21.6-31.8); Chloride 100 mmol/L (96-109); Chol/HDL Ratio 4.13 Ratio; Globulin 2.4 g/dL (1.6-3.3); Glucose 93 mg/dL (70-110); LDL Cholesterol,Calculated 116.4 mg/dL (0.0-131.0); Sodium 138 mmol/L (135-145); Total Bilirubin 0.4 mg/dL (0.3-1.2); Total Protein 6.7 g/dL (6.2-8.2); VLDL Calculation 19.32 mg/dL (5.00-40.00)
== END | disposition home or self-care (01) ==
LOC: LABWHC1 14:23
PROVIDERS: ATTEND Nurse Practitioner Adult Health
DX: I10 Essential (primary) hypertension (principal); E78.2 Mixed hyperlipidemia
CPT/HCPCS: 36415; 80053; 80061

== ENCOUNTER → 2024-05-31 | Outpatient (CLI) | payer MEDICARE ==
[2024-05-31 16:33] LABS: Basophils # (A) 0.05 X 10*3/uL (0.00-0.10); Basophils % (A) 0.8 %; Eosinophils # (A) 0.22 X 10*3/uL (0.04-0.35); Eosinophils % (A) 3.3 %; HCT 37.9 % (39.6-50.0); HGB 12.6 g/dL (13.0-17.0); Lymphocytes # (A) 0.86 X 10*3/uL (0.90-5.00); MCH 30.4 pg (27.0-32.0); MCHC 33.2 g/dL (32.0-37.0); MCV 91.5 FL (80.0-97.0); Mean Platelet Volume 9.8 FL (9.5-12.2); Monocytes # (A) 0.79 X 10*3/uL (0.20-1.00); Monocytes % (A) 11.9 %; NRBC Per 100 WBC 0 X 10*3/uL (0.00-0.01); Neutrophils # (A) 4.69 X 10*3/uL (1.80-7.70); Neutrophils % (A) 70.7 %; Platelet Count 224 X 10*3/uL (140-440); RBC 4.14 X 10*6/uL (4.40-5.60); RDW 13.3 % (11.5-14.5); WBC 6.63 X 10*3/uL (4.50-10.00)
[2024-05-31 17:06] LABS: ALT 9 U/L (10-49); AST 19 U/L (14-35); Alkaline Phosphatase 79 U/L (41-126); Blood Urea Nitrogen 25.2 mg/dL (9.0-27.0); Calcium 9.7 mg/dL (8.7-10.3); Chloride 102 mmol/L (96-109); Chol/HDL Ratio 4.61 Ratio; Globulin 2.5 g/dL (1.6-3.3); Glucose 99 mg/dL (70-110); LDL Cholesterol,Calculated 123.5 mg/dL (0.0-131.0); Potassium 4.5 mmol/L (3.5-5.5); Sodium 140 mmol/L (135-145); Total Bilirubin 0.3 mg/dL (0.3-1.2); Total Protein 6.5 g/dL (6.2-8.2); VLDL Calculation 18.22 mg/dL (5.00-40.00)
== END | disposition home or self-care (01) ==
LOC: LABWHC1 10:37
PROVIDERS: ATTEND Family Medicine
CPT/HCPCS: 36415; 80053; 80061; 82306; 84146; 84443; 85025

== ENCOUNTER → 2024-06-26 | Outpatient (CLI) | payer MEDICARE ==
[2024-06-26 13:55] LABS: African American GFR (CKD) 45 (>60 ml/min/1.73 sqM); Blood Urea Nitrogen 33 mg/dL (9-20); Non-African American GFR(CKD) 39 (>60 ml/min/1.73 sqM)
== END | disposition home or self-care (01) ==
LOC: RADCTMAIN 13:15
PROVIDERS: ATTEND Family Medicine
DX: E23.6 Other disorders of pituitary gland (principal)
CPT/HCPCS: 82565; 84520

== ENCOUNTER → 2024-07-27 | Outpatient (CLI) | payer MEDICARE ==
[~2024-07-27] MED LIST changes: -LACTATED RINGERS 1,000 ML IV SCH; +SODIUM CHLORIDE 0.9% 250 ML in EMPTY BAG 1 BAG IV PRN; +SODIUM CHLORIDE 0.9% 500 ML 500 ML in EMPTY BAG 1 BAG IV PRN
[2024-07-27] MEDS: SODIUM CHLORIDE 0.9% 1,000 ML IV NR (09:25)
[2024-07-27 09:33] VITALS: BP 130/65; PULSE 47; RESP 16; TEMP 97.4
[2024-07-27 11:28] LABS: African American GFR (CKD) 58 (>60 ml/min/1.73 sqM); Blood Urea Nitrogen 47 mg/dL (9-20); Non-African American GFR(CKD) 50 (>60 ml/min/1.73 sqM)
== END ==
LOC: PROCWHC3 09:06
PROVIDERS: ATTEND Family Medicine
DX: E23.6 Other disorders of pituitary gland (principal); N18.31 Chronic kidney disease, stage 3a
CPT/HCPCS: 82565; 84520; 96360

== ENCOUNTER → 2024-07-27 | Outpatient (CLI) | payer MEDICARE ==
--- NOTE | 2024-07-27 12:55 | CT ---
EXAMINATION TYPE: CT brain w con CT DLP: 1138.40 mGycm, Automated exposure control for dose reduction was used. DATE OF EXAM: 07/27/2024 12:43 PM COMPARISON: Head CT 03/09/2019, MR Pituitary 02/15/2017, 06/16/2016, CT brain 06/01/2016. CLINICAL INDICATION:Male, 84 years old with history of E23.6 PITUITARY MASS; PHH, pituitary mass TECHNIQUE: Axial CT images of the brain were obtained after the uneventful administration of 80 cc of Isovue-[address] intravenously. One or more CT dose reduction strategies were utilized during this examina tion. Coronal and sagittal reformats reviewed. FINDINGS: Extra-axial spaces: No abnormal extra-axial fluid collections. Ventricular system: Within normal limits Cerebral parenchyma: Age-appropriate diffuse cerebral volume loss. No acute intraparenchymal hemorrha ge or mass effect. The cobos-white junction is well differentiated. Scattered hypoattenuating areas a re seen within the periventricular and subcortical white matter. Sella: Mild increase in size of heterogenous enhancing mass within the sella with suprasellar extensi on measuring 1.5 x 2.0 x 1.9 cm in AP, CC, TV dimensions. Previously measured 1.4 x 1.9 x 1.5 cm on p rior MR Pituitary 02/15/2017. There is again encroachment along the margin of the optic chiasm an less than on a degree abutment of the bilateral internal carotid arteries. Cerebellum: Unremarkable. Mass effect: No evidence of midline shift. Intracranial vasculature: Atherosclerotic calcifications of the intracranial vessels. Soft tissues: Normal. Calvarium/osseous structures: No depressed skull fracture. Paranasal sinuses and mastoid air cells: Clear. Visualized orbits: Bilateral aphakia IMPRESSION: 1. Marginal increase in size of sellar mass with suprasellar extension from prior MR Pituitary 2016. This again encroaches upon the optic chiasm with less than 180 degrees abutment of the bilatera l internal carotid arteries. 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 2. No acute intracranial hemorrhage. 3. Nonspecific white matter changes likely related to chronic small vessel ischemic disease. [facility], , 07/27/2024 12:53 PM
== END | disposition home or self-care (01) ==
LOC: RADCTMAIN 11:12
PROVIDERS: ATTEND Family Medicine
DX: E23.6 Other disorders of pituitary gland (principal); N18.31 Chronic kidney disease, stage 3a; H27.03 Aphakia, bilateral
CPT/HCPCS: 70460; Q9967